=== PATIENT | male | born 1975 | race African-American/Black ===

== ENCOUNTER 2020-04-24 21:07 | Emergency (ER) | payer BC ==
[~2020-04-24] VITALS: Ht 175.3 cm; Wt 131.5 kg
[2020-04-24] MEDS ORDERED: ZESTRIL40 MG PO (21:18)
[2020-04-24 21:27] LABS: URINE BILIRUBIN NEGATIVE (Negative); URINE BLOOD TRACE (Negative); URINE CLARITY CLEAR; URINE COLOR YELLOW; URINE GLUCOSE-RANDOM* NEGATIVE (Negative); URINE KETONES NEGATIVE (Negative); URINE NITRITE-REFLEX NEGATIVE (Negative); URINE PROTEIN (DIPSTICK) NEGATIVE (Negative); URINE SPECIFIC GRAVITY >= 1.030 (1.005-1.035)
[2020-04-24 21:30] LABS: URINE LEUKOCYTES-REFLEX 1+ (Negative)
[2020-04-24 21:34] LABS: MUCUS >6 Heavy strn/LPF (None Seen); SQUAMOUS 0-3 Few /LPF (0-3)
[2020-04-24 21:35] LABS: CASTS None Seen /LPF (None Seen); CRYSTALS None Seen /LPF (None Seen); URINE RBC 0-2 Rare /HPF (0-2); URINE WBC-REFLEX >25 Many /HPF (0-5)
== END 2020-04-24 22:12 | disposition home or self-care (01) ==
LOC: ER 21:07
PROVIDERS: Emergency Medicine
DX: N39.0 Urinary tract infection, site not specified (principal); I10 Essential (primary) hypertension; Z79.899 Other long term (current) drug therapy